=== PATIENT | male | born 1975 | race Caucasian/White ===

== ENCOUNTER 2019-10-24 18:51 | Emergency (ER) | payer SELFPAY ==
[~2019-10-24] VITALS: Ht 193 cm; Wt 156.0 kg
[2019-10-24] MEDS ORDERED: ACETAMINOPHEN 325MG TABLET PO ONE (19:15)
[2019-10-24 19:43] LABS: BASOPHILS % 0.7 % (0.0-2.0); EOSINOPHILS % 0.5 % (0.0-5.0); HEMATOCRIT. 42.4 % (42.0-52.0); HEMOGLOBIN. 14.7 g/dL (14.0-18.0); LYMPHOCYTES % 19.5 % (20.0-50.0); MEAN CORPUSCULAR HEMOGLOBIN 30.1 pg (28.0-32.0); MEAN CORPUSCULAR VOLUME 86.6 fL (80.0-94.0); MEAN PLATELET VOLUME 8.4 fl (7.4-10.4); MONOCYTES % 6.9 % (2.0-8.0); NEUTROPHILS % 72.4 % (40.0-76.0); PLATELET 183 x1000/uL (130-400); RED BLOOD CELL COUNT 4.89 mill/uL (4.7-6.1); RED CELL DISTRIBUTION WIDTH 13.9 % (11.6-14.6)
[2019-10-24 19:47] LABS: CHLORIDE 107 mEq/L (98-107)
[2019-10-24] MEDS ORDERED: AMLODIPINE 2.5MG TABLET PO NR (20:15)
[2019-10-24 20:45] LABS: CLARITY URINE CLEAR (CLEAR); COLOR URINE YELLOW (YELLOW); KETONES URINE NEGATIVE (NEGATIVE); LEUKOCYTE ESTERASE URINE NEGATIVE (NEGATIVE); NITRITE URINE NEGATIVE (NEGATIVE); OCCULT BLOOD URINE NEGATIVE (NEGATIVE); PROTEIN URINE NEGATIVE (NEGATIVE); SPECIFIC GRAVITY URINE 1.019 (1.005-1.030); UROBILINOGEN URINE 0.2 E.U./dL (0.2-1.0)
[2019-10-24 21:01] LABS: *COCAINE SCREEN URINE NEGATIVE (NEGATIVE); CANNABINOID URINE SCREEN PRESUMTIVE POSITIVE (NEGATIVE); METHADONE URINE SCREEN NEGATIVE (NEGATIVE); OPIATES URINE SCREEN NEGATIVE (NEGATIVE); PHENCYCLIDINE URINE SCREEN NEGATIVE (NEGATIVE)
[2019-10-24 21:02] LABS: *AMPHETAMINES SCREEN URINE NEGATIVE (NEGATIVE); *BARBITURATES SCREEN URINE NEGATIVE (NEGATIVE); *BENZODIAZEPINES SCREEN URINE NEGATIVE (NEGATIVE)
[2019-10-24 21:16] VITALS: BP 170/96
== END 2019-10-24 21:48 | disposition home or self-care (01) ==
LOC: ER 18:51
DX: R03.0 Elevated blood-pressure reading, without diagnosis of hypertension (principal); E66.9 Obesity, unspecified; Z68.41 Body mass index [BMI] 40.0-44.9, adult; Z98.890 Other specified postprocedural states; Z91.041 Radiographic dye allergy status; Z91.013 Allergy to seafood
CPT/HCPCS: 36415; 80053; 80305; 81003; 85025; 93005; 99285

== ENCOUNTER 2022-03-24 16:55 | Emergency (ER) | payer SELFPAY ==
[~2022-03-24] VITALS: Ht 193 cm; Wt 145.0 kg
[2022-03-24 19:37] VITALS: BP 157/93
== END 2022-03-24 19:38 | disposition home or self-care (01) ==
LOC: ER 17:06
DX: M54.89 Other dorsalgia (principal); I10 Essential (primary) hypertension; Z98.1 Arthrodesis status; Z91.041 Radiographic dye allergy status; Z91.013 Allergy to seafood; V43.52XA Car driver injured in collision with other type car in traffic accident, initial encounter; Y93.89 Activity, other specified; Y92.488 Other paved roadways as the place of occurrence of the external cause
CPT/HCPCS: 99281

== ENCOUNTER 2023-04-30 19:30 | Emergency (ER) | payer SELFPAY ==
[~2023-04-30] VITALS: Ht 193 cm; Wt 149.0 kg
[2023-04-30 19:48] VITALS: TEMP 98.5; O2SAT 96
[2023-04-30] MEDS ORDERED: CYCL10TA21 MT (20:09)
[2023-04-30] MEDS ORDERED: IBUP-2030 MT (20:10)
[2023-04-30 20:23] VITALS: BP 154/87; PULSE 88; RESP 18
== END 2023-04-30 20:31 | disposition home or self-care (01) ==
LOC: ER 19:30
DX: M54.2 Cervicalgia (principal); M54.50 Low back pain, unspecified; I10 Essential (primary) hypertension
CPT/HCPCS: 99281

== ENCOUNTER 2023-06-27 12:43 | Emergency (ER) | payer SELFPAY ==
[~2023-06-27] VITALS: Ht 193 cm; Wt 136.0 kg
[~2023-06-27 12:43] MED LIST: CYCL10TA21 MT; IBUP-2030 MT
[2023-06-27 12:51] VITALS: TEMP 98.5; O2SAT 97
[2023-06-27] MEDS ORDERED: KETO10TA2 MT (14:05)
[2023-06-27] MEDS ORDERED: METH-653 MT (14:05)
[2023-06-27 14:19] VITALS: BP 160/76; PULSE 95; RESP 20
[2023-06-27] MEDS: OXYCODONE HCL/ACETAMINOPHEN 5/325MG TABLET PO ONE (14:19)
== END 2023-06-27 14:19 | disposition home or self-care (01) ==
LOC: ER 12:43
DX: M54.9 Dorsalgia, unspecified (principal); I10 Essential (primary) hypertension; Z91.040 Latex allergy status; Z91.013 Allergy to seafood; Z98.890 Other specified postprocedural states
CPT/HCPCS: 99283

== ENCOUNTER 2024-12-07 16:33 | Emergency (ER) | payer OTHER ==
[~2024-12-07] VITALS: Ht 193 cm; Wt 150.0 kg
[~2024-12-07 16:33] MED LIST changes: +KETO10TA2 MT; +METH-653 MT
[2024-12-07 16:37] VITALS: TEMP 36.9; O2SAT 99
[2024-12-07] MEDS: KETOROLAC 30MG/ML VIAL IM ONE ×2 (17:15→17:30)
[2024-12-07] MEDS: LIDOCAINE 5% PATCH TOP SCH ×2 (17:15→17:30)
[2024-12-07] MEDS ORDERED: LIDO700A30 TP (18:08)
[2024-12-07 19:26] VITALS: BP 178/97; PULSE 68; RESP 16; O2SAT 99
== END 2024-12-07 19:27 | disposition home or self-care (01) ==
LOC: ER 16:33
DX: G89.29 Other chronic pain (principal); M54.9 Dorsalgia, unspecified; I10 Essential (primary) hypertension; M43.16 Spondylolisthesis, lumbar region; Z88.8 Allergy status to other drugs, medicaments and biological substances; F10.90 Alcohol use, unspecified, uncomplicated; V43.52XA Car driver injured in collision with other type car in traffic accident, initial encounter; Y93.89 Activity, other specified; Y92.410 Unspecified street and highway as the place of occurrence of the external cause; Y99.8 Other external cause status
CPT/HCPCS: 99283; 72100; 96372; J1885